=== PATIENT | female | born 1945 | race Caucasian/White ===

== ENCOUNTER 2016-03-01 10:58 | Outpatient (RCR) | payer MEDICARE, BC ==
[2016-03-01] VITALS (9 sets, daily range): BP systolic 88–105; BP diastolic 41–68; PULSE 87–95; TEMP 97.9–98.6
[~2016-03-01] VITALS: Ht 167.6 cm; Wt 90.0 kg
[~2016-03-01 10:58] MED LIST: AMITRIPTYLINE H25 M1 PO; MULTIVITAMIN FO1 CAP PO; SYNTHROID0.05 MG/TA PO; TYLENOL 8 HR PO; ULTRAM 50MG TAB50 MG PO
[2016-03-01 11:34] LABS: HEMOGLOBIN 6.9 g/dl (12.5-16.0)
== END 2016-03-01 16:55 | disposition home or self-care (01) ==
LOC: EUO 10:58
PROVIDERS: Surgery
DX: R16.1 Splenomegaly, not elsewhere classified (principal)
CPT/HCPCS: J7050; P9016

== ENCOUNTER → 2016-03-13 | Outpatient (CLI) | payer MEDICARE, BC ==
[~2016-03-13] VITALS: Ht 167.6 cm; Wt 87.7 kg
[2016-03-13] VITALS (10 sets, daily range): BP systolic 96–115; BP diastolic 61–66; PULSE 82–85; TEMP 97.6–98.6
[~2016-03-13] MED LIST changes: +NORCO 325 MG-51 TAB PO; +NYQUIL GENERIC PO; +ZOFRAN 4MG T4 MG/TAB PO; +ZYLOPRIM 300MG300 MG PO
[2016-03-13 10:59] LABS: MEAN CELL VOLUME 77 fl (80.0-100.0); MEAN CORPUSCULAR HGB CONC 31 g/dl (33.0-37.0); MEAN PLATELET VOLUME 8.1 fl (7.4-10.4); PLATELET COUNT 837 K/mm3 (130-400); RED BLOOD COUNT 3.32 M/mm3 (4.10-5.30); REDCELL DISTRIBUTION WIDTH-CV 21.3 % (11.5-14.5); WHITE BLOOD COUNT 16.4 K/mm3 (4.8-10.8)
[2016-03-13 11:07] LABS: HEMATOCRIT 25.7 % (37.0-47.0); HEMOGLOBIN 7.9 g/dl (12.5-16.0); MEAN CORPUSCULAR HEMOGLOBIN 24 pg (27.0-31.0)
[2016-03-13 11:26] LABS: ADJUSTED CALCIUM 10.6 mg/dL (8.4-10.2); ALBUMIN 3.3 gm/dL (3.5-5.0); BILIRUBIN,TOTAL 0.6 mg/dL (0.0-1.0); CREATININE, serum 0.68 mg/dL (0.52-1.25)
== END ==
LOC: EUO 13:54 → SURG 03-14 13:30 → EDSTATUS 03-14 15:00
PROVIDERS: Surgery
DX: D64.89 Other specified anemias (principal); R16.1 Splenomegaly, not elsewhere classified
CPT/HCPCS: J7050; P9016

== ENCOUNTER 2016-03-14 08:48 | Inpatient (IN) | payer MEDICARE, BC ==
[~2016-03-14] VITALS: Ht 170.2 cm; Wt 88.1 kg
[2016-03-14] VITALS (10 sets, daily range): BP systolic 86–121; BP diastolic 53–70; PULSE 80–95; TEMP 97.9–98.9
[~2016-03-14 08:48] MED LIST changes: -NORCO 325 MG-51 TAB PO; -NYQUIL GENERIC PO; -ZOFRAN 4MG T4 MG/TAB PO; -ZYLOPRIM 300MG300 MG PO
[2016-03-14 12:20] LABS: MEAN CELL VOLUME 77 fl (80.0-100.0); MEAN CORPUSCULAR HGB CONC 31 g/dl (33.0-37.0); MEAN PLATELET VOLUME 8.2 fl (7.4-10.4); PLATELET COUNT 878 K/mm3 (130-400); RED BLOOD COUNT 4.09 M/mm3 (4.10-5.30); REDCELL DISTRIBUTION WIDTH-CV 21.1 % (11.5-14.5); WHITE BLOOD COUNT 15.5 K/mm3 (4.8-10.8)
[2016-03-14 12:23] LABS: HEMATOCRIT 31.4 % (37.0-47.0); HEMOGLOBIN 9.7 g/dl (12.5-16.0); MEAN CORPUSCULAR HEMOGLOBIN 24 pg (27.0-31.0)
[2016-03-14] MEDS ORDERED: NYQUIL GENERIC PO (13:23)
[2016-03-14 18:19] LABS: HEMATOCRIT 30.1 % (37.0-47.0); HEMOGLOBIN 9.5 g/dl (12.5-16.0)
[2016-03-14 18:31] LABS: INR 1.4 (0.8-3.0); PROTHROMBIN TIME 15.3 SECONDS (9.7-12.8)
[2016-03-15 02:17] VITALS: BP 104/59; PULSE 71; TEMP 97.6
[2016-03-15 05:58] VITALS: BP 96/58; PULSE 71; TEMP 98.1
[2016-03-15 07:21] LABS: BASO % 0.1 % (0.0-2.0); GRAN # 9.5 (1.4-6.5); GRAN % 83.5 % (42.2-75.2); LYMPH # 1.1 (1.2-3.4); LYMPH % 9.4 % (20.0-51.0); MEAN CELL VOLUME 81 fl (80.0-100.0); MEAN CORPUSCULAR HGB CONC 31 g/dl (33.0-37.0); MEAN PLATELET VOLUME 9.1 fl (7.4-10.4); MONO # 0.7 (0.1-0.6); MONO % 6.3 % (1.7-9.3); RED BLOOD COUNT 3.15 M/mm3 (4.10-5.30); REDCELL DISTRIBUTION WIDTH-CV 20.1 % (11.5-14.5); WHITE BLOOD COUNT 11.4 K/mm3 (4.8-10.8)
[2016-03-15 07:39] LABS: CALCIUM 8.6 mg/dL (8.4-10.2); CREATININE, serum 0.52 mg/dL (0.52-1.25); HEMATOCRIT 25.5 % (37.0-47.0); HEMOGLOBIN 7.9 g/dl (12.5-16.0); MEAN CORPUSCULAR HEMOGLOBIN 25 pg (27.0-31.0); PLATELET COUNT 590 K/mm3 (130-400); POTASSIUM 4.3 mmol/L (3.4-5.0)
[2016-03-15 09:13] VITALS: BP 102/60; PULSE 73; TEMP 98.2
[2016-03-15 14:13] VITALS: BP 91/51; PULSE 73; TEMP 97.7
[2016-03-15 18:10] VITALS: BP 105/59; PULSE 73; TEMP 98.2
[2016-03-15 19:08] LABS: HEMATOCRIT 24.7 % (37.0-47.0); HEMOGLOBIN 7.8 g/dl (12.5-16.0)
[2016-03-15 21:50] VITALS: BP 92/72; PULSE 75; TEMP 98.3
[2016-03-16 01:34] VITALS: BP 96/58; PULSE 76; TEMP 98
[2016-03-16 04:38] VITALS: BP 114/67; PULSE 85; TEMP 98.4
[2016-03-16 07:17] LABS: BASO % 0.2 % (0.0-2.0); EOS % 0.2 % (0-4.0); GRAN # 12.1 (1.4-6.5); GRAN % 73.8 % (42.2-75.2); LYMPH # 2.7 (1.2-3.4); LYMPH % 16.3 % (20.0-51.0); MEAN CELL VOLUME 82 fl (80.0-100.0); MEAN CORPUSCULAR HGB CONC 31 g/dl (33.0-37.0); MEAN PLATELET VOLUME 8.3 fl (7.4-10.4); MONO # 1.5 (0.1-0.6); MONO % 8.9 % (1.7-9.3); RED BLOOD COUNT 3.35 M/mm3 (4.10-5.30); REDCELL DISTRIBUTION WIDTH-CV 20.2 % (11.5-14.5); WHITE BLOOD COUNT 16.4 K/mm3 (4.8-10.8)
[2016-03-16 07:33] LABS: HEMATOCRIT 27.4 % (37.0-47.0); HEMOGLOBIN 8.6 g/dl (12.5-16.0); MEAN CORPUSCULAR HEMOGLOBIN 26 pg (27.0-31.0); PLATELET COUNT 792 K/mm3 (130-400)
[2016-03-16 07:39] LABS: CALCIUM 8.6 mg/dL (8.4-10.2); CREATININE, serum 0.54 mg/dL (0.52-1.25); POTASSIUM 3.3 mmol/L (3.4-5.0)
[2016-03-16 09:14] VITALS: BP 121/68; PULSE 85; TEMP 98.4
[2016-03-16 13:52] VITALS: BP 122/71; PULSE 84; TEMP 98.9
[2016-03-16 18:18] VITALS: BP 111/63; PULSE 89; TEMP 99.5
[2016-03-16 22:11] VITALS: BP 124/68; PULSE 94; TEMP 99.8
[2016-03-17 02:25] VITALS: BP 110/59; PULSE 86; TEMP 99.1
[2016-03-17 06:20] VITALS: BP 100/64; PULSE 86; TEMP 98.9
[2016-03-17 07:27] LABS: ANION GAP 7 mmol/L (7-16); CALCIUM 8.5 mg/dL (8.4-10.2); CARBON DIOXIDE 26 mmol/L (22-30); CHLORIDE 97 mmol/L (98-107); CREATININE, serum 0.56 mg/dL (0.52-1.25); GLUCOSE 127 mg/dL (74-106); POTASSIUM 3.5 mmol/L (3.4-5.0); SODIUM 131 mmol/L (137-145)
[2016-03-17 07:28] LABS: MEAN CELL VOLUME 81 fl (80.0-100.0); MEAN CORPUSCULAR HGB CONC 31 g/dl (33.0-37.0); MEAN PLATELET VOLUME 8.5 fl (7.4-10.4); PLATELET COUNT 864 K/mm3 (130-400); RED BLOOD COUNT 3.55 M/mm3 (4.10-5.30); REDCELL DISTRIBUTION WIDTH-CV 20.7 % (11.5-14.5); WHITE BLOOD COUNT 14.8 K/mm3 (4.8-10.8)
[2016-03-17 07:31] LABS: BLOOD UREA NITROGEN < 2 mg/dL (7-17)
[2016-03-17 07:33] LABS: ADD PATHOLOGY DIFF REVIEW NO; HEMATOCRIT 28.9 % (37.0-47.0); MEAN CORPUSCULAR HEMOGLOBIN 25 pg (27.0-31.0)
[2016-03-17 08:10] LABS: BAND 11 % (0-10); HYPOCHROMIA 2+; METAMYELOCYTE 1 % (0-0); NEUTROPHILS 65 % (42.0-75.2); PLATELET ESTIMATE INCREASED (NORMAL); TARGET CELLS 2+; TOTAL CELLS COUNTED 100
[2016-03-17 08:22] VITALS: BP 116/63; PULSE 88; TEMP 99
[2016-03-17 14:12] VITALS: BP 119/70; PULSE 88; TEMP 97.9
[2016-03-17 17:26] VITALS: BP 106/64; PULSE 74; TEMP 98.4
[2016-03-17 22:10] VITALS: BP 107/56; PULSE 80; TEMP 98.6
[2016-03-18 01:47] VITALS: BP 105/60; PULSE 87; TEMP 98.7
[2016-03-18 06:00] VITALS: BP 102/66; PULSE 83; TEMP 99.2
[2016-03-18 10:08] VITALS: BP 124/72; PULSE 93; TEMP 98.1
[2016-03-18 14:18] VITALS: BP 106/69; PULSE 85; PULSE 967; TEMP 85; TEMP 97.6
[2016-03-18 18:29] VITALS: BP 93/56; PULSE 80; TEMP 97.3
[2016-03-18 22:48] VITALS: BP 100/60; PULSE 73; TEMP 97.5
[2016-03-19 04:35] VITALS: BP 102/59; PULSE 72; TEMP 97.8
[2016-03-19 09:45] VITALS: BP 110/64; PULSE 74; TEMP 97.2
[2016-03-19 13:33] VITALS: BP 113/65; PULSE 79; TEMP 97.9
[2016-03-19 17:16] VITALS: BP 104/70; PULSE 79; TEMP 98.3
[2016-03-19 22:11] VITALS: BP 115/55; PULSE 71; TEMP 98
[2016-03-20 05:07] VITALS: BP 114/64; PULSE 73; TEMP 98.5
[2016-03-20] MEDS ORDERED: NORCO 325 MG-51 TAB PO (08:42)
[2016-03-20 09:41] VITALS: BP 117/70; PULSE 74; TEMP 97.7
[2016-03-20] MEDS ORDERED: ZOFRAN 4MG T4 MG/TAB PO (10:21)
== END 2016-03-20 12:00 | disposition home or self-care (01) | DRG 820 ==
LOC: INPTSU 11:41 → SURG 19:56
PROVIDERS: Nurse Anesthetist, Certified Registered; Surgery
PROC: 0FBG0ZZ Excision of Pancreas, Open Approach (ICD-10-PCS; 2016-03-14)
PROC: 0DB60ZZ Excision of Stomach, Open Approach (ICD-10-PCS; 2016-03-14)
PROC: 8E0W0CZ Robotic Assisted Procedure of Trunk Region, Open Approach (ICD-10-PCS; 2016-03-14)
PROC: 07TP0ZZ Resection of Spleen, Open Approach (ICD-10-PCS; principal; 2016-03-14 13:30)
DX: C83.37 Diffuse large B-cell lymphoma, spleen (principal); E43 Unspecified severe protein-calorie malnutrition; D64.9 Anemia, unspecified
CPT/HCPCS: A4315; A9284; J0690; J1100; J1170; J1650; J1885; J2250; J2270; J2370; J2405; J2704; J3010; J7030; J7042; J7050; J7120; P9016

== ENCOUNTER 2016-04-05 07:36 | Day surgery (SDC) | payer MEDICARE, BC ==
[~2016-04-05] VITALS: Ht 170.2 cm; Wt 83.6 kg
[~2016-04-05 07:36] MED LIST changes: +NORCO 325 MG-51 TAB PO; +NYQUIL GENERIC PO; +ZOFRAN 4MG T4 MG/TAB PO
[2016-04-05] MEDS ORDERED: ZYLOPRIM 300MG300 MG PO (08:15)
[2016-04-05 08:19] VITALS: BP 134/77; PULSE 90; TEMP 97.4
[2016-04-05 10:48] VITALS: BP 107/66; PULSE 74; TEMP 97.7
[2016-04-05 11:03] VITALS: BP 114/78; PULSE 73
[2016-04-05] MEDS ORDERED: NORCO 325 MG-51 TAB PO (11:17)
[2016-04-05 11:18] VITALS: BP 108/67; PULSE 70
[2016-04-05 11:33] VITALS: BP 125/77; PULSE 71
== END 2016-04-05 11:55 | disposition home or self-care (01) ==
LOC: SDCO 07:36
DX: C83.37 Diffuse large B-cell lymphoma, spleen (principal); J90 Pleural effusion, not elsewhere classified; D64.9 Anemia, unspecified; E03.9 Hypothyroidism, unspecified; Z79.899 Other long term (current) drug therapy; Z90.81 Acquired absence of spleen; Z90.3 Acquired absence of stomach [part of]
CPT/HCPCS: C1788; J1100; J1644; J2405; J2704; J3010; J7120